=== PATIENT | female | born 1990 | race African-American/Black ===

== ENCOUNTER 2017-09-19 10:00 | Emergency (ER) | payer OTHER ==
[~2017-09-19] VITALS: Ht 149.9 cm; Wt 44.0 kg
[2017-09-19] MEDS ORDERED: PERCOCET 5-3251 EACH PO (13:04)
== END 2017-09-19 13:33 | disposition home or self-care (01) ==
LOC: ER 10:00
DX: S52.571A Other intraarticular fracture of lower end of right radius, initial encounter for closed fracture (principal); V49.9XXA Car occupant (driver) (passenger) injured in unspecified traffic accident, initial encounter; Y93.89 Activity, other specified; Y92.488 Other paved roadways as the place of occurrence of the external cause; Y99.8 Other external cause status